=== PATIENT | female | born 1945 | race Caucasian/White ===

== ENCOUNTER → 2018-12-08 | Outpatient (CLI) | payer OTHER, SELFPAY ==
[2018-11-23 15:20] VITALS: BMI 31.4
--- NOTE | 2018-12-08 12:44 | ECHOD_ITS ---
Reason For Study: Valve Replacement Eval Procedure This was a 2D Doppler, Color Flow transthoracic echocardiogram. Exam performed in department. Left Ventricle Mild concentric left ventricular hypertrophy. The estimated ejection fraction is 65 %. No regional wall motion abnormalities noted. Right Ventricle Normal size and thickness. Normal systolic function. Atria The left atrium is moderately enlarged. Normal right atrium. Normal atrial septum. Mitral Valve Mild diffuse mitral valve thickening. Moderate mitral annular calcification extending into the posterior leaflet. Mild-Moderate (1-2+) anteriorly directed mitral valve insufficiency. Tricuspid Valve Normal tricuspid valve. Mild (1+) tricuspid valve insufficiency. Right ventricular systolic pressure estimated to be 68 mmHg. Severe pulmonary hypertension. Aortic Valve Moderate aortic stenosis. Peak aortic valve gradient 41 mmHg. Mean aortic valve gradient 24 mmHg. Calculated aortic valve area (continuity equation) is 1.2 cm2. Mild (1+) aortic valve insufficiency. Bioprosthetic aortic valve. Fixed severely thickened leaflet of bioprosthetic aortic valve. The 2 other leaflets appear to open normally. Pulmonic Valve Normal pulmonic valve. Great Vessels Normal aortic root. Normal arch. Normal inferior vena cava. Inferior vena cava collapse with sniff. Pericardium/Pleural No pericardial effusion. MMode/2D Measurements & Calculations LVIDd: 4.6 cm IVSd: 1.4 cm LVOT diam: 2.0 cm LVIDs: 3.0 cm LVPWd: 1.2 cm LVOT area: 3.1 cm2 RVDd: 3.3 cm FS: 35.3 % Ao root diam: 3.1 cm LAV(MOD-bp): 75.5 ml LVAd ap4: 23.8 cm2 LAV(MOD-bp) Indexed: 40.4 ml/m2 EDV(MOD-sp4): 68.0 ml LAV(MOD-sp2): 68.2 ml EDV(sp4-el): 69.6 ml LAV(MOD-sp4): 82.5 ml LVAs ap4: 12.5 cm2 ESV(MOD-sp4): 22.6 ml ESV(sp4-el): 23.2 ml EF(MOD-sp4): 66.8 % EF(sp4-el): 66.7 % SV(MOD-sp4): 45.4 ml SV(sp4-el): 46.4 ml LA A4 area: 24.5 cm2 LA dimension(2D): 5.4 cm RA A4 area: 13.3 cm2 Doppler Measurements & Calculations MV E max wm: 120.8 cm/sec Lat Peak E' Wm: 6.6 cm/sec Med Peak E' Wm: 4.4 cm/sec MV A max wm: 53.2 cm/sec E/E' lat: 18.2 E/E' med: 27.5 MV E/A: 2.3 Ao V2 max: 318.5 cm/sec AI max wm: 521.2 cm/sec LV V1 max: 120.0 cm/sec Ao max P.6 mmHg AI max P.7 mmHg LV V1 max P.8 mmHg Ao V2 mean: 233.3 cm/sec LV V1 mean P.9 mmHg Ao mean P.7 mmHg AI dec slope: 353.6 cm/sec2 LV V1 mean: 94.6 cm/sec Ao V2 VTI: 78.6 cm AI P1/2t: 431.8 msec LV V1 VTI: 32.2 cm CASIE(I,D): 1.3 cm2 CASIE(V,D): 1.2 cm2 SV(LVOT): 100.7 ml PA V2 max: 94.0 cm/sec TR max wm: 379.5 cm/sec TR max P.6 mmHg Interpretation Summary The estimated ejection fraction is 65 %. The left atrium is moderately enlarged. Mild-Moderate (1-2+) anteriorly directed mitral valve insufficiency. Mild (1+) tricuspid valve insufficiency. Right ventricular systolic pressure estimated to be 68 mmHg. Severe pulmonary hypertension. Bioprosthetic aortic valve. Fixed severely thickened leaflet of bioprosthetic aortic valve. The 2 other leaflets appear to open normally. Moderate aortic stenosis. Peak aortic valve gradient 41 mmHg. Mean aortic valve gradient 24 mmHg. Calculated aortic valve area (continuity equation) is 1.2 cm2. Mild (1+) aortic valve insufficiency. Compared to echo report dated 07/30/2017, LV function has remained the same, but pulmonary pressures have increased from 41 to 68 mm Hg. Aortic stenosis has gone from mild to moderate. Ordering Physician: Matt Burgess Referring Physician: Matt Burgess Performed By: Ramya Trevino, LILIA, RVT
--- NOTE | 2018-12-08 12:44 | CDU_ITS ---
Reason For Study: bruit Rt. Velocities/BP Lt. Velocities/BP Prox CCA 89.1/20.0 cm/sec. Prox CCA 85.2/22.6 cm/sec. Mid CCA 86.5/20.0 cm/sec. Mid CCA 86.5/25.2 cm/sec. Dist CCA 90.4/22.6 cm/sec. Dist CCA 86.5/27.8 cm/sec. Prox ICA 85.2/21.3 cm/sec. Prox ICA 47.6/16.8 cm/sec. Mid ICA 96.9/27.8 cm/sec. Mid ICA 102.5/32.2 cm/sec. Dist ICA 112.5/27.8 cm/sec. Dist ICA 94.9/30.0 cm/sec. Rt. ICA/CCA = 1.2. Lt. ICA/CCA = 1.2. Prox ECA 111.2/13.4 cm/sec. Prox ECA 89.1/10.8 cm/sec. Rt. Vert. 74.7/13.4 cm/sec. Lt. Vert. 57.5/21.2 cm/sec. Right Extracranial There is intimal thickening but no significant atherosclerotic plaque noted in the right common carotid artery. There is heterogeneous, irregular atherosclerotic plaque noted in the right internal carotid artery. There is homogeneous, smooth atherosclerotic plaque noted in the right external carotid artery. Antegrade flow is noted in the right vertebral artery. Left Extracranial There is intimal thickening but no significant atherosclerotic plaque noted in the left common carotid artery. There is heterogeneous, irregular atherosclerotic plaque noted in the left internal carotid artery. There is intimal thickening but no significant atherosclerotic plaque noted in the left external carotid artery. Antegrade flow is noted in the left vertebral artery. 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 <50% stenosis right external carotid Irregular plague at the proximal left internal carotid with <50% stenosis. <50% stenosis left external carotid Patent and antegrade vertebrals bilaterally Ordering Physician: Matt Burgess Performed By: Glenn Cardenas RVT
== END | disposition home or self-care (01) ==
LOC: CVS 12:43
PROVIDERS: Referring Provider Internal Medicine Cardiovascular Disease; Visit Provider Internal Medicine Cardiovascular Disease
DX: I35.0 Nonrheumatic aortic (valve) stenosis (principal); I34.0 Nonrheumatic mitral (valve) insufficiency; I27.21 Secondary pulmonary arterial hypertension; Z95.2 Presence of prosthetic heart valve; E78.5 Hyperlipidemia, unspecified; R09.89 Other specified symptoms and signs involving the circulatory and respiratory systems
CPT/HCPCS: 93306; 93880